=== PATIENT | male | born 1980 | race Caucasian/White ===

== ENCOUNTER 2019-09-30 00:39 | Inpatient (IN) ==
[2019-09-30] MEDS ORDERED: Ondansetron 4 MG/2 ML VIAL IVP PRN (06:29)
[2019-09-30] MEDS ORDERED: Naloxone 0.4 MG/ML INJ IVP PRN (06:29)
[2019-09-30] MEDS ORDERED: 0.9 % Sodium Chloride 1,000 ML IVC SCH (06:45)
[2019-09-30] MEDS: 0.9 % Sodium Chloride 1,000 ML IVC SCH ×4 (07:13→21:48)
[2019-09-30 07:38] LABS: Calcium 7.9 mg/dL (8.6-10.3); Magnesium 2.3 mg/dL (1.6-2.6); Potassium 3.8 mEq/L (3.5-5.1)
[2019-09-30 07:55] LABS: Acetaminophen < 10 mcg/mL (10-20); Gamma Glutamyl Transpeptidase 47 Units/L (7-64); Lipase < 3 Units/L (11-82)
[2019-09-30 07:57] LABS: Prothrombin Time 11.2 Seconds (9.4-12.1)
[2019-09-30 11:11] LABS: Calcium 7.8 mg/dL (8.6-10.3); Potassium 3.6 mEq/L (3.5-5.1)
[2019-09-30] MEDS ORDERED: 0.9 % Sodium Chloride 1,000 ML IVC ONE (11:52)
[2019-09-30 14:58] LABS: Calcium 7.8 mg/dL (8.6-10.3); Potassium 3.5 mEq/L (3.5-5.1)
[2019-09-30 19:51] LABS: Creatinine,Urine 43 mg/dL
[2019-10-01] MEDS ORDERED: Azithromycin 500 MG in 0.9 % Sodium Chloride 250 ML IVPB SCH
[2019-10-01] MEDS ORDERED: cefTRIAXone 1,000 MG in Water for inj. (sterile) 10 ML IVP SCH
[2019-10-01 07:57] LABS: Hematocrit 36.7 % (37.5-50.1); Hemoglobin 12.4 g/dL (12.9-16.9); Mean Corpuscular HGB Conc 33.8 g/dL (31.6-35.5); Mean Corpuscular Hemoglobin 27.8 pg (28.0-33.3); Mean Corpuscular Volume 82.3 fL (83.0-100.0); Mean Platelet Volume 11.4 fL (9.4-12.4); Platelet Count 164 K/mcL (140-400); Red Blood Count 4.46 M/mcL (4.19-5.50); Red Cell Distribution Width 12.5 % (11.5-14.5); White Blood Count 10.3 K/mcL (4.3-11.1)
[2019-10-01 08:39] LABS: Albumin 2.8 g/dL (3.5-5.7); Bilirubin,Total 0.4 mg/dL (0.3-1.0); Calcium 8.1 mg/dL (8.6-10.3); Globulin 2.8 g/dL (2.4-3.5); Magnesium 2.5 mg/dL (1.6-2.6); Potassium 3.4 mEq/L (3.5-5.1); Total Protein 5.6 g/dL (6.4-8.9)
[2019-10-01 08:53] LABS: Lymphocytes # 1.2 K/mcL (0.6-4.6); Monocytes # 0.6 K/mcL (0.0-1.3); Neutrophils # 8.5 K/mcL (1.6-8.9); Platelet Estimate Normal (Normal)
[2019-10-01 08:54] LABS: Anisocytosis 1+ (Not Present)
[2019-10-01] MEDS ORDERED: 0.9 % Sodium Chloride 1,000 ML IVC SCH (09:15)
[2019-10-01] MEDS: 0.9 % Sodium Chloride 1,000 ML IVC SCH ×3 (10:10→22:46)
[2019-10-01] MEDS ORDERED: 0.9 % Sodium Chloride 1,000 ML IVC ONE ×2 (10:53→18:00)
[2019-10-01] MEDS ORDERED: levoFLOXacin 750 MG TABLET PO SCH (13:45)
[2019-10-01 14:47] LABS: Hepatitis B Surface Antigen Nonreactive (Nonreactive)
[2019-10-01 15:19] LABS: Hepatitis A Antibody IgM Nonreactive (Nonreactive)
[2019-10-01 15:20] LABS: Hepatitis B Core IgM Nonreactive (Nonreactive)
[2019-10-01 17:21] LABS: Hepatitis C Virus Antibody Reactive (Nonreactive)
[2019-10-01] MEDS: *HR* Heparin 5,000 UNIT/ML VIAL SQ SCH (17:45)
[2019-10-02 00:50] LABS: Hematocrit 37.3 % (37.5-50.1); Hemoglobin 12.6 g/dL (12.9-16.9); Mean Corpuscular HGB Conc 33.8 g/dL (31.6-35.5); Mean Corpuscular Hemoglobin 28.6 pg (28.0-33.3); Mean Corpuscular Volume 84.6 fL (83.0-100.0); Mean Platelet Volume 10.8 fL (9.4-12.4); Platelet Count 190 K/mcL (140-400); Red Blood Count 4.41 M/mcL (4.19-5.50); Red Cell Distribution Width 12.7 % (11.5-14.5); White Blood Count 11.4 K/mcL (4.3-11.1)
[2019-10-02 01:27] LABS: Albumin 2.7 g/dL (3.5-5.7); Albumin/Globulin Ratio 0.9 (1.1-2.2); Bilirubin,Total 0.4 mg/dL (0.3-1.0); Calcium 8.3 mg/dL (8.6-10.3); Total Protein 5.7 g/dL (6.4-8.9)
[2019-10-02] MEDS: *HR* Heparin 5,000 UNIT/ML VIAL SQ SCH (05:34)
[2019-10-02 07:01] VITALS: BP 136/70
[2019-10-02] MEDS ORDERED: levoFLOXacin 750 MG TABLET PO SCH (09:00)
[2019-10-02] MEDS ORDERED: 0.9 % Sodium Chloride 1,000 ML IVC ONE (09:07)
[2019-10-02 09:09] LABS: Thyroid Stimulating Hormone 2.002 mcIU/mL (0.340-5.600)
[2019-10-02] MEDS ORDERED: 0.9 % Sodium Chloride 500 ML IVC SCH (09:15)
[2019-10-03 09:23] LABS: Serine Protease-3 Antibody 1 AU/mL (0-19)
== END 2019-10-02 14:04 | disposition home or self-care (01) | DRG 351 ==
LOC: 3ANU → SUATTDRO 12:39
PROVIDERS: ADMIT Internal Medicine; ATTEND Internal Medicine